=== PATIENT | male | born 1955 | race Caucasian/White ===

== ENCOUNTER → 2017-06-03 | Outpatient (CLI) | payer MEDICAID | END | disposition home or self-care (01) | LOC: ROC 08:19 | PROVIDERS: ATTEND Radiology Radiation Oncology | DX: C61 Malignant neoplasm of prostate (principal); G89.29 Other chronic pain; Z90.79 Acquired absence of other genital organ(s) | CPT/HCPCS: 99212; G0463 ==

== ENCOUNTER → 2018-01-17 | Outpatient (CLI) | payer MEDICAID | LOC: ROC 13:02 | PROVIDERS: ATTEND Radiology Radiation Oncology | DX: Z08 Encounter for follow-up examination after completed treatment for malignant neoplasm (principal); C61 Malignant neoplasm of prostate; C79.51 Secondary malignant neoplasm of bone; B18.2 Chronic viral hepatitis C | CPT/HCPCS: 99212; G0463 ==

== ENCOUNTER → 2018-07-21 | Outpatient (CLI) | payer MEDICAID | END | disposition home or self-care (01) | LOC: ROC 08:39 | PROVIDERS: ATTEND Radiology Radiation Oncology | DX: C61 Malignant neoplasm of prostate (principal) | CPT/HCPCS: 99212; G0463 ==